=== PATIENT | male | born 1945 | race Caucasian/White ===

== ENCOUNTER → 2017-07-28 | Outpatient (CLI) | payer MEDICARE, OTHER ==
[~2017-07-28] MED LIST: ADULT LOW DOSE81 MG; ADVAIRDISKUS; CARVEDILOL12.5 MG PO; COREG PO; COZAAR 50 MG TA50 M2; ENAL0; GLUCOPHAGE500 MG; KLOR-CON 1010 MEQ; LASIX 40 MG TAB40 M1; LASIX 40 MG TAB40 MG; LEVOTHYROXIN0.088 MG; LIPITOR; LIPITOR40 MG; PROZAC40 MG; RANEXA500 MG; SYNTHROID; SYNTHROID100 MCG; VASOTEC; VENTOLIN HFA INH8 GM; WELLBUTRIN SR150 MG; ZOLOFT100 MG
[2017-07-28 14:45] LABS: CHOLESTEROL 134 mg/dL (<200); HDL CHOLESTEROL 49 mg/dL (>40); LDL CHOLESTEROL 55 mg/dL (<100); SGOT 19 U/L (15-37); SGPT 28 U/L (30-65); TC:HDL 2.7 Ratio (Not establshd); TRIGLYCERIDE 152 mg/dL (<150); VLDL 30 mg/dL (<40)
[2017-07-28 14:50] LABS: SERUM ASSESSMENT Clear
--- NOTE | 2017-07-28 15:40 | 2DMMODE ---
[place] [address] 2 D/M-MODE ECHOCARDIOGRAM Name: GUILHERME OCASIO Room: [facility]#: [id number] Admission: 07/28/17 Attend Phys: Alcon Talley, Discharge: Date of : 41 Date of Service: 07/28/17 1540 Report #: [id number] THIS REPORT FOR: //name// APPROVED REPORT Study performed: 07/28/2017 14:53:08 EXAM: Comprehensive 2D, Doppler, and color-flow Echocardiogram Patient Location: Out-Patient BSA: 2.17 HR: 57 bpm BP: 140/90 mmHg Other Information Study Quality: Good Indications Chest Pain 2D Dimensions LVEF(%): 53.54 (>50%) IVSd: 11.77 (7-11mm) LVOT Diam: 21.61 (18-24mm) LVDd: 52.19 mm PWd: 11.77 (7-11mm) Ascending Ao: 32.41 (22-36mm) LVDs: 37.67 (25-40mm) Aortic Root: 33.71 mm Grande's LVEF: 53.54 % Volumes Left Atrial Volume (Systole) LA ESV Index: 21.50 mL/m2 Aortic Valve AoV Peak Walter.: 1.20 m/s AO Peak Gr.: 5.80 mmHg LVOT Max P.48 mmHg AO Mean Gr.: 2.97 mmHg LVOT Mean P.04 mmHg LVOT Max V: 0.79 m/s AO V2 VTI: 28.27 cm LVOT Mean V: 0.46 m/s JOVANNI (VTI): 2.90 cm2 LVOT V1 VTI: 22.38 cm AI [place]: 2.03 m/s2 AI PHT: 522.75 ms Mitral Valve E/A Ratio: 0.80 [place] [address] 2 D/M-MODE ECHOCARDIOGRAM Name: GUILHERME OCASIO Room: [facility]#: [id number] Admission: 07/28/17 Attend Phys: Alcon Talley, Discharge: Date of : 41 Date of Service: 07/28/17 1540 Report #: [id number] MV Decel. Time: 306.65 ms MV E Max Walter.: 0.61 m/s MV PHT: 88.93 ms MVA (PHT): 2.47 cm2 TDI E/Lateral E': 8.71 E/Medial E': 10.17 Medial E' Walter.: 0.06 m/s Lateral E' Walter.: 0.07 m/s Pulmonary Valve PV Peak Walter.: 0.72 m/s PV Peak Gr.: 2.04 mmHg Tricuspid Valve TR Peak Gr.: 24.87 mmHg RVSP: 29.87 mmHg Left Ventricle The left ventricle is normal size. Mild basal inferior hypokinesis, otherwise normal segmental motion There is normal left ventricular wall thickness. Left ventricular systolic function is normal. The left ventricular ejection fraction is within the normal range. LVEF is 55-60%. Grade I - abnormal relaxation pattern. Right Ventricle The right ventricle is normal size. The right ventricular systolic function is normal. Atria The left atrium size is normal. The right atrium size is normal. Aortic Valve The aortic valve is normal in structure. Mild to moderate aortic regurgitation. There is no aortic valvular stenosis. Mitral Valve The mitral valve is normal in structure. Mild mitral regurgitation. No evidence of mitral valve stenosis. Tricuspid Valve The tricuspid valve is normal in structure. Mild tricuspid regurgitation. The RVSP is _29.9 mmHg. Pulmonic Valve The pulmonary valve is normal in structure. There is no [place]mon[place] [address] 2 D/M-MODE ECHOCARDIOGRAM Name: Room: [facility] Jordan#: [id number] Admission: 07/28/17 Attend Phys: Alcon Talley, Discharge: Date of : 41 Date of Service: 07/28/17 1540 Report #: [id number] Great Vessels The aortic root is normal in size. IVC is normal in size and collapses with >50% inspiration Pericardium There is no pericardial effusion. <Conclusion> LVEF is 55-60%. Grade I - abnormal relaxation pattern. Mild basal inferior hypokinesis, otherwise normal segmental motion Mild to moderate aortic regurgitation. Mild mitral regurgitation. <ELECTRONICALLY SIGNED> By: Alcon Talley MD, FACC 07/28/17 1540 154 154 Alcon Talley MD, FACC /INF
== END ==
LOC: M.CRD 13:59
PROVIDERS: Internal Medicine Cardiovascular Disease
DX: I08.3 Combined rheumatic disorders of mitral, aortic and tricuspid valves (principal); I50.22 Chronic systolic (congestive) heart failure; I10 Essential (primary) hypertension; Z98.61 Coronary angioplasty status

== ENCOUNTER → 2018-03-08 | Outpatient (CLI) | payer MEDICARE, OTHER | LOC: M.MRI 15:55 | DX: I67.82 Cerebral ischemia (principal); G31.9 Degenerative disease of nervous system, unspecified; I10 Essential (primary) hypertension; E11.9 Type 2 diabetes mellitus without complications; E78.5 Hyperlipidemia, unspecified; I25.10 Atherosclerotic heart disease of native coronary artery without angina pectoris; J45.909 Unspecified asthma, uncomplicated ==

== ENCOUNTER 2018-11-17 16:47 | Inpatient (IN) | payer MEDICARE, OTHER ==
[~2018-11-17] VITALS: Ht 175.3 cm; Wt 100.4 kg
--- NOTE | ~2018-11-17 | CON ---
[address] [address] CONSULTATION Name: GUILHERME OCASIO Room: [address] IN [facility].#: [id number] Admission: 11/17/18 Attend Phys: Christiano España MD Discharge: Date of : 41 Report #: [id number] THIS REPORT FOR: //name// CC: KHANG España DICTATED BY: Vanda Espinal [facility] DATE OF SERVICE: 11/18/2018 REASON FOR CONSULTATION: Small bowel abscess. HISTORY OF PRESENT ILLNESS: This is a 73-year-old male, who presented to the Emergency Room after being sent by his PCP for abnormal CT findings. It was done as an outpatient that revealed a small bowel abscess versus a walled off diverticulum. He started feeling a little nauseous on Thursday. He awoke Thursday, having abdominal pain radiating in the left lower quadrant and right lower quadrant and into his back. He states it was just getting very uncomfortable, nothing seemed to relieve. He did not notice any change in his bowel habits at that time and because he had a decreased appetite and some mild nausea, he decided to go in and see his PCP who ordered the CT and once that was read, he was instructed to go to the Emergency Room. The patient had a colonoscopy back in 2016 and had some polyps and diverticulosis, otherwise negative EGD in 2011 showed ____ and hiatal hernia. ALLERGIES: SHAY COLD AND SINUS. MEDICATIONS: From home include metformin, aspirin, albuterol, Lipitor, Lasix, Coreg, Ranexa, Synthroid, Wellbutrin, Advair, Zoloft, potassium chloride, and Cozaar. PAST MEDICAL HISTORY: Cardiomyopathy, CAD, Parkinson's, COPD, posttraumatic stress disorder, hypothyroidism. PAST SURGICAL HISTORY: Cholecystectomy, left wrist surgery and right ankle. FAMILY HISTORY: Mother, colon cancer. SOCIAL HISTORY: Denies any alcohol, tobacco, or illegal drug use. Him and his are to leave for vacation for 3 weeks this week. REVIEW OF SYSTEMS: A 12-point review of systems is essentially negative except what is mentioned in the HPI. PHYSICAL EXAMINATION: [place] [address] CONSULTATION Name: AMARJITCONNORGUILHERME D Room: [address]#: [id number] Admission: 11/17/18 Attend Phys: Christiano España MD Discharge: Date of : 41 Report #: [id number] VITAL SIGNS: Temperature 37.4, pulse 66, respirations 16, blood pressure 112/48. HEART: Regular rate and rhythm. LUNGS: Clear. ABDOMEN: Soft. Positive bowel sounds in all 4 quadrants with tenderness noted in the left lower to mid quadrant area. LABORATORY DATA: Hemoglobin 11.3, white count 13.5 down from 20 on admission, platelets 245. GFR is 54. LFTs; total bilirubin 1.2, alkaline phosphatase 59, ALT 25, AST is 18. CT that was done as an outpatient showed 2 small bowel diverticulum versus a contained perforation. IMPRESSION: 1. Abdominal pain. 2. Small bowel abscess. 3. Leukocytosis. 4. Family history of colon cancer, mother. PLAN: 1. No intervention from GI at this time. 2. Continue his current antibiotic regimen. 3. Keeping n.p.o. 4. We will be available as needed and on standby. Thank you for allowing us to participate in this patient's care. Please do not hesitate to call with any questions in regard to this consult. By: [id number] Rolon MD /nt
[~2018-11-17 16:47] MED LIST changes: +SYNTHROID100 MC1 PO; -SYNTHROID88 MCG PO
[2018-11-17 16:52] VITALS: BP 124/76
[2018-11-17 17:09] LABS: HEMATOCRIT 41.1 % (42.0-52.0); HEMOGLOBIN 13.8 gm/dL (14.0-18.0); MCH 29.9 pg (26.0-34.0); MCHC 33.5 g/dL (28.0-37.0); MCV 89.4 fL (80.0-100.0); MPV 8.1 fl. (7.2-11.1); NUCLEATED RBCS 0 /100WBC; PLATELET COUNT* 312 thou/uL (150-400); RDW-CV 13.5 % (10.5-14.5); WBC 20.5 thou/uL (4.0-11.0)
[2018-11-17 17:17] LABS: CALCIUM 9.3 mg/dL (8.5-10.1); CREATININE 1.5 mg/dL (0.6-1.3); POTASSIUM 3.4 mmol/L (3.5-5.1)
[2018-11-17 17:22] LABS: ALBUMIN 4.1 g/dL (3.4-5.0); TOTAL BILIRUBIN 1.7 mg/dL (<0.1-1.0); TOTAL PROTEIN 8.5 g/dL (6.4-8.2)
[2018-11-17 17:36] LABS: BE -3.9 mmol/L (-2 to +3); PCO2 27.2 mmHg (35.0-45.0); PO2 65.5 mmHg (75.0-100.0); pH 7.452 (7.340-7.450)
[2018-11-17 17:47] LABS: ABSOLUTE LYMPHOCYTES 1.8 thou/uL (0.8-5.3); ABSOLUTE MONOCYTES 1.6 thou/uL (0.0-1.2); PLATELET ESTIMATE ADEQUATE
[2018-11-17 18:12] VITALS: BP 128/56
[2018-11-17 18:30] VITALS: BP 127/46
--- NOTE | 2018-11-17 19:30 | NUR ---
PATIENT ARRIVED FROM ER AT 1830. PATIENT SETTLED TO ROOM. HISTORY, ASSESSMENT AND VITALS COMPLETED AND DOCUMENTED. PATIENT HAS COMPLAINTS OF ABDOMINAL PAIN WITH NO NAUSEA. PATIENT IS NPO, SWABS PROVIDED. PATIENT IS UP AD ROXANNA WITH CANE. CALL LIGHT WITHIN REACH. WILL CONTINUE TO MONITOR.
[2018-11-17 20:15] VITALS: BP 102/53
[2018-11-17] MEDS ORDERED: LIPITOR40 MG PO (23:30)
[2018-11-17] MEDS ORDERED: RANEXA500 MG PO (23:31)
[2018-11-18 01:38] VITALS: BP 113/63
[2018-11-18 04:14] LABS: ABSOLUTE EOSINOPHILS 0.1 thou/uL (0.0-0.7); ABSOLUTE LYMPHOCYTES 1.4 thou/uL (0.8-5.3); ABSOLUTE MONOCYTES 1.7 thou/uL (0.0-1.2); ABSOLUTE NEUTROPHILS 10.3 thou/uL (1.6-8.1); BASOPHILS 0.4 %; EOSINOPHILS 0.4 %; HEMATOCRIT 33.3 % (42.0-52.0); LYMPHOCYTES 10.4 %; MCH 30.5 pg (26.0-34.0); MCV 89.8 fL (80.0-100.0); MONOCYTES 12.7 %; MPV 8.5 fl. (7.2-11.1); NUCLEATED RBCS 0 /100WBC; PLATELET COUNT* 245 thou/uL (150-400); POLYS 76.1 %; RBC 3.71 mil/uL (4.50-6.00); RDW-CV 13.3 % (10.5-14.5); WBC 13.5 thou/uL (4.0-11.0)
[2018-11-18 04:30] LABS: HEMOGLOBIN 11.3 gm/dL (14.0-18.0)
[2018-11-18 04:45] LABS: CALCIUM 8.7 mg/dL (8.5-10.1); CREATININE 1.3 mg/dL (0.6-1.3); POTASSIUM 3.2 mmol/L (3.5-5.1); TOTAL BILIRUBIN 1.2 mg/dL (<0.1-1.0); TOTAL PROTEIN 6.8 g/dL (6.4-8.2)
--- NOTE | 2018-11-18 06:05 | NUR ---
PATIENT HAS SLEPT WELL THROUGHOUT THE NIGHT. VSS ON 2L 02 VIA NASAL CANNULA. MEDICATIONS GIVEN ORDERED AND CHARTED. PATIENT USING BEDSIDE URINAL DURING THE NIGHT. PATIENT HAS REMAINED NPO. IV IN LEFT AC-NS @ 100ML/HR. IV ABT'S GIVEN ORDERED WITHOUT ANY ADVERSE SIDE EFFECTS NOTED. PATIENT INSTRUCTED TO USE CALL LIGHT WHEN NEEDING ASSISTANCE. HOURLY ROUNDS MADE. WILL CONTINUE WITH PLAN OF CARE AND NURSING TO MONITOR.
[2018-11-18 08:30] VITALS: BP 112/48
[2018-11-18 11:06] LABS: GLYCOHEMOGLOBIN (HGB A1C) 6.5 % (4.8-5.6)
--- NOTE | 2018-11-18 11:23 | EKG ---
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 11/18/18 1123 170 1700 Alcon Talley MD, [facility] /EPI
--- NOTE | 2018-11-18 14:23 | NUR ---
PT.RESTING IN BED. AND SISTER AT BEDSIDE. PT.ALERT AND ORIENTED. PT.LIVES WITH . HE IS NORMALLY INDEPENDENT WITH ALL THINGS AT HOME. HE HAS A CANE. HE DRIVES. HE HAS NO HX OF SNF OR HOME HEALTH. SISTER SAID SHE HAS COPY OF DPOA AT HER HOUSE IF NEEDED. PT.HAD NO QUESTIONS ABOUT HIS CARE OR PLAN OF CARE. HE STATED THE CARE HAS BEEN GREAT. CM WILL FOLLOW.
[2018-11-18 16:44] VITALS: BP 105/62
[2018-11-18 17:20] LABS: MAGNESIUM 2.5 mg/dL (1.8-2.4); POTASSIUM 3.5 mmol/L (3.5-5.1)
--- NOTE | 2018-11-18 18:36 | NUR ---
PATIENT RESTING IN BED. PATIENT IS UP WITH STANDBY ASSIST TO BATHROOM. PATIENT HAD COMPLAINTS OF ABDOMINAL PAIN X 1 WITH ADEQUATE RELIEF WITH FENTANYL. PATIENT IS NPO, BUT WANTING TO EAT. IR CONSULTING FOR DRAIN PLACEMENT BUT STATED NOT ABLE TO PLACE ANY DRAINS AT THIS TIME. PATIENT DENIES ANY NEEDS AT THIS TIME. CALL LIGHT WITHIN REACH. WILL CONTINUE TO MONITOR.
[2018-11-19] VITALS: BP 98/53
[2018-11-19 03:54] LABS: HEMOGLOBIN 10.3 gm/dL (14.0-18.0); MCH 30.2 pg (26.0-34.0); MCHC 33.3 g/dL (28.0-37.0); MCV 90.6 fL (80.0-100.0); MPV 8.3 fl. (7.2-11.1); RBC 3.43 mil/uL (4.50-6.00); RDW-CV 13.7 % (10.5-14.5); WBC 7.6 thou/uL (4.0-11.0)
[2018-11-19 04:00] VITALS: BP 104/65
[2018-11-19 04:17] LABS: CALCIUM 8.3 mg/dL (8.5-10.1); CREATININE 1.1 mg/dL (0.6-1.3); POTASSIUM 3.7 mmol/L (3.5-5.1)
--- NOTE | 2018-11-19 05:36 | NUR ---
PT ALERT AND ORIENTED. 9PM COREG WAS HELD BP WAS LOW, OTHERWISE VSS. PO PAIN MED WAS GIVEN X1 THIS SHIFT. RELIEF NOTED. SLEEP MED WAS ORDERED AND GIVEN PT'S REQUEST. PT SLEPT MOST OF THE NIGHT. PO MEDS GIVEN WITH SIPS OF WATER. IV ABX INFUSED PER EMAR. CALL LIGHT WITHIN REACH. HOURLY ROUNDINGS MADE. WILL CONTINUE TO MONITOR.
[2018-11-19 08:00] VITALS: BP 123/74
--- NOTE | 2018-11-19 10:15 | NUR ---
Spoke with RN Lorena for this patient in regards to IR consult with Dr. Wynn and the abscess drainage that is ordered. Called Dr. Wynn and he reviewed the xrays. Dr. Wynn stated that he cannot safely get to the abscess due to multiple small bowel loops that are in the way. I relayed this information to the RN so that Dr. España may be informed and may proceed in a different direction.
[2018-11-19 11:17] LABS: URINE BLOOD NEGATIVE (Negative); URINE CLARITY CLEAR; URINE COLOR YELLOW; URINE GLUCOSE-RANDOM NEGATIVE (Negative); URINE KETONES 1+ (Negative); URINE LEUKOCYTES-REFLEX NEGATIVE (Negative); URINE NITRITE-REFLEX NEGATIVE (Negative); URINE PROTEIN TRACE (Negative); URINE SPECIFIC GRAVITY >= 1.030 (1.005-1.030); URINE UROBILINOGEN 0.2 E.U./dl (0.2-1.0)
[2018-11-19 11:18] LABS: ICTOTEST (BILI CONFIRMATORY) Negative (Negative); URINE BILIRUBIN 1+ (Negative)
--- NOTE | 2018-11-19 12:36 | NUR ---
RIGHT BASILIC VESSEL ACCESED FOR 5 MALAY DUAL LUMEN PICC. LINE PRE-TRIMMED TO 41 CM AND ADVANCED TO THE ZERO ED WITH NO RESISTQNCE MET. UPPER ARM CIRCUMFERENCE ABOVE INSERTION SITE = 12". SHERLOCK MAGNET AND 3CG CONFIRMATION OF TIP TERMINATION AT THE CAVOATRIAL JUNCTION APPRECIATED. GUIDE WIRE REMOVED, LINE FLUSHED AND INSERTION SITE DRESSED. REOPRT GIVERN TO NEPTALI ANDERSON.
--- NOTE | 2018-11-19 15:49 | NUR ---
ASSESSMENT COMPLETE. PICC PLACED IN RIGHT UPPER ARM THIS MORNING FOR TPN AND IV ABX. PT STILL NPO. D5 10MEQ INFUSING. IV ZOSYN GIVEN ORDERED. PT HAS CT TOMORROW. IR CONSULT AND STATED THE LOCATION OF [facility] IS NOT IN AN AREA THEY CAN SAFELY DRAIN. GI AND SURGERY STILL FOLLOWING. PT IS ACCU CHECK, NO METFORMIN DUE TO CT'S WITH CONTRAST. NO INSULIN NEEDED DURING THE DAY. PHYSICAL THERAPY CONSULTED, PT AMBULATED IN HALLWAY WITH GAIT BELT. MAG REPLACED. PT IS RESTING WITH AT BEDSIDE. SEE ASSESSMENT AND VITALS FOR OTHER DETAILS. CALL LIGHT WITHIN REACH, WILL CONTINUE PLAN OF CARE
[2018-11-19 16:52] VITALS: BP 121/64
--- NOTE | 2018-11-20 05:12 | NUR ---
PT ORIENTED TO SELF, OTHERWISE CONFUSED. BASELINE DEMENTIA. VSS ON 2L NC . MEDS GIVEN PER EMAR. WHEN AWAKE, PT WOULD SAY "I FEEL STUPID THAT I CANNOT GET OUT BED". PT WAS CALLING HER DAUGHTER'S NAME DAYDAY PARRA AM. PT. REORIENTATION TO PLACE AND SITUATION PROVIDED NEEDED. CALL LIGHT WITHIN REACH. HOURLY ROUNDINGS MADE. WILL CONTINUE TO MONITOR.
[2018-11-20 05:20] LABS: ABSOLUTE BASOPHILS 0.1 thou/uL (0.0-0.2); ABSOLUTE EOSINOPHILS 0.4 thou/uL (0.0-0.7); ABSOLUTE LYMPHOCYTES 1.2 thou/uL (0.8-5.3); ABSOLUTE MONOCYTES 0.7 thou/uL (0.0-1.2); ABSOLUTE NEUTROPHILS 5.3 thou/uL (1.6-8.1); HEMATOCRIT 33.6 % (42.0-52.0); HEMOGLOBIN 11.5 gm/dL (14.0-18.0); LYMPHOCYTES 15.6 %; MCH 30.9 pg (26.0-34.0); MCHC 34.3 g/dL (28.0-37.0); MCV 90.2 fL (80.0-100.0); MONOCYTES 8.9 %; MPV 8.2 fl. (7.2-11.1); NUCLEATED RBCS 0 /100WBC; PLATELET COUNT* 317 thou/uL (150-400); POLYS 69.5 %; RBC 3.72 mil/uL (4.50-6.00); RDW-CV 13.4 % (10.5-14.5); WBC 7.7 thou/uL (4.0-11.0)
--- NOTE | 2018-11-20 05:35 | NUR ---
PT LAERT AND ORIENTED. VSS ON RA. MEDS GIVEN PER EMAR. SMALL BM NOTED X1 THIS SHIFT. PT TO BSC WITH CANE. STANDY ASSIST. TPN INFUSING ORDERED. NPO. PT SLEPT WELL THIS SHIFT. CALL LIGHT WITHIN REACH. HOURLY ROUNDINGS MADE. WILL CONTINUE TO MONITOR.
[2018-11-20 05:40] LABS: CREATININE 1.2 mg/dL (0.6-1.3); MAGNESIUM 1.9 mg/dL (1.8-2.4); POTASSIUM 3.6 mmol/L (3.5-5.1)
[2018-11-20 16:28] VITALS: BP 159/70
--- NOTE | 2018-11-20 19:00 | NUR ---
PATIENT PLEASANT AND COOPERATIVE THRU SHIFT. PRESENT AT TIMES DURING SHIFT, AT BEDSIDE. PATIENT VOICED CONCERN ABOUT ABD BLOATING, STATES THAT HE TAKES LASIX AT HOME AND HIS FLUID RETENTION IS MORE IN HIS ABD THAN IN HIS EXTREMITIES. DR NOTIFIED, NO CHANGES ORDERED. PATIENT NPO EXCEPT FOR SIPS WITH MEDS THIS SHIFT. UP TO CHAIR THIS AFTERNOON. STATES VOIDING WELL, STATES SM BM TODAY. PICC LINE NOTED WNL, TPN INFUSING W/O DIFF AT THIS TIME. ~TJRN
[2018-11-20 20:00] VITALS: BP 151/74
[2018-11-21 02:20] VITALS: BP 108/61
--- NOTE | 2018-11-21 05:01 | NUR ---
PATIENT HAS REMAINED ALERT AND ORIENTED X 4 THROUGHOUT THE SHIFT AND RESTING AT INTERVALS ON HOURLY ROUNDS. UP TO BR. PASSING SOME GAS, NO BM. TPN AND ANTIBIOTICS PER ORDERS. NEW ORDER OK FOR ICE CHIPS. PATIENT TOLERATED WITHOUT ANY NEGATIVE RESPONSE. VITAL SIGNS STABLE. CONTINUE TO MONITOR.
[2018-11-21 05:06] LABS: ABSOLUTE BASOPHILS 0.1 thou/uL (0.0-0.2); ABSOLUTE EOSINOPHILS 0.2 thou/uL (0.0-0.7); ABSOLUTE LYMPHOCYTES 1.1 thou/uL (0.8-5.3); ABSOLUTE MONOCYTES 0.7 thou/uL (0.0-1.2); BASOPHILS 1.4 %; EOSINOPHILS 3.6 %; HEMATOCRIT 29.6 % (42.0-52.0); HEMOGLOBIN 10.3 gm/dL (14.0-18.0); LYMPHOCYTES 18.1 %; MCH 31.4 pg (26.0-34.0); MCHC 34.8 g/dL (28.0-37.0); MCV 90.4 fL (80.0-100.0); MONOCYTES 11.2 %; NUCLEATED RBCS 0 /100WBC; PLATELET COUNT* 269 thou/uL (150-400); POLYS 65.7 %; RBC 3.27 mil/uL (4.50-6.00); RDW-CV 13.4 % (10.5-14.5); WBC 6.1 thou/uL (4.0-11.0)
[2018-11-21 05:26] LABS: CALCIUM 8.2 mg/dL (8.5-10.1); CREATININE 0.8 mg/dL (0.6-1.3); POTASSIUM 3.3 mmol/L (3.5-5.1)
[2018-11-21 08:00] VITALS: BP 153/73
[2018-11-21 15:34] VITALS: BP 148/70
--- NOTE | 2018-11-21 19:00 | NUR ---
PATIENT PLEASANT AND COOPERATIVE W/ ASSESS AND CARES. PATIENT AMB IN HALLS THIS AFTERNOON, CANE AND SBA PRESENT. STEADY, SLOW GAIT NOTED. PATIENT DENIES PAIN, STATES HAVING BM THIS AM. NO DIFF W/ URINATING. ABD NOTED LESS DISTENDED THIS SHIFT FROM YESTERDAY. PATIENT STATES FEELING MUCH BETTER TODAY. PICC LINE NOTED WNL, +BLOOD RETURN NOTED FROM PORTS. PRESENT DURING SHIFT. DIET ADVANCED TO FULL LIQS, PATIENT DENIES NAUSEA, EATING WELL. DENIES NURSING NEEDS AT THIS TIME. CALL LIGHT IN REACH, HRLY ROUNDING DONE. ~TJRN
[2018-11-21 20:15] VITALS: BP 165/82
--- NOTE | 2018-11-22 05:14 | NUR ---
PATIENT HAS REMAINED ALERT AND ORIENTED X 4 THROUGHOUT THE SHIFT AND RESTING QUIETLY ON HOURLY ROUNDS. HAS DENIED PAIN OR NAUSEA. VOIDS PER URINAL. NO BM'S THIS SHIFT. SOME STATED SOA PRIOR TO EARLY AM BREATHING TREATMENT. VITAL SIGNS STABLE. ANTIBIOTICS PER ORDER. CONTINUE TO MONITOR.
[2018-11-22 07:50] VITALS: BP 137/63
--- NOTE | 2018-11-22 07:56 | CON ---
[address] [address] CONSULTATION Name: GUILHERME OCASIO Room: [address] IN .R.#: [id number] Admission: 11/17/18 Attend Phys: Christiano España MD Discharge: Date of : 41 Report #: [id number] THIS REPORT FOR: //name// CC: Pawel España DATE OF SERVICE: 11/19/2018 INFECTIOUS DISEASE CONSULTATION ATTENDING PHYSICIAN: Christiano España M.D. REASON FOR EVALUATION: Intra-abdominal abscess. Recommendation for antibiotic therapy duration. HISTORY OF PRESENT ILLNESS: Chart reviewed, patient examined. This is a 73-year-old with extensive medical history including diabetes mellitus type 2, also has known chronic obstructive pulmonary disease, who presented to the Emergency Room with complaints of severe abdominal-related complaints. On November 17, there was a concern about a small bowel obstruction, possible perforation. Imaging showed ____ appeared to be inflammatory fluid collections. Someone needs to find about the etiology whether it is small bowel related or perhaps diverticulitis. He has been evaluated including Gastroenterology service as well as Surgery and placed empirically on therapy with piperacillin and tazobactam. At this point, his pain is improved. He did describe true rigors at its onset. He has had poor p.o. intake with anorexia. Bowel movements have been somewhat variable. Denies significant pulmonary related complaints. ALLERGIES: LISTED TO PHENYLEPHRINE, PSEUDOEPHEDRINE, CHLORPHENIRAMINE. MEDICATIONS: Include pantoprazole, enoxaparin, aspirin, levothyroxine, atorvastatin, losartan, sertraline, bupropion, carvedilol, ranolazine, p.r.n. analgesics, antiemetics, Zosyn, insulin lispro sliding scale, famotidine. PAST MEDICAL HISTORY: As described above, diabetes mellitus type 2 complicated by vasculopathy, has known atherosclerotic coronary artery disease with previous stenting, has cardiomyopathy, history of COPD, obstructive sleep apnea, Parkinson's, hypothyroidism, PTSD. SOCIAL HISTORY: Nonsmoker, no ethanol, no illicit drug use. FAMILY HISTORY: Noncontributory. REVIEW OF SYSTEMS: Otherwise, unremarkable 10-point review of systems other than described in the [place] [address] CONSULTATION Name: GUILHERME OCASIO Room: [address]#: [id number] Admission: 11/17/18 Attend Phys: Christiano España MD Discharge: Date of : 41 Report #: [id number] PHYSICAL EXAMINATION: GENERAL: He is alert and cooperative. He is in moderate distress at this point, appears somewhat undernourished. He is generally lucid. VITAL SIGNS: Temperature 98.4, pulse 60, respirations 15, blood pressure 123/74. SKIN: Warm without evidence of rash. He has got several contused areas in his forearms. HEENT: Normocephalic. Extraocular muscles intact. NECK: Supple. LUNGS: Overall diminished, few scattered crackles at the bases. HEART: Regular, occasional ectopy. I do not appreciate a murmur. ABDOMEN: Distended, somewhat tympanitic. There are no overt peritoneal signs. It is only minimally tender favoring the left lower quadrant periumbilical site. GENITOURINARY AND RECTAL: Deferred. EXTREMITIES: Distal lower extremities without edema. LABORATORY DATA: Blood cultures sterile thus far. Most recent electrolytes; sodium 143, potassium 3.7, chloride 107, bicarb is 25, anion gap of 11, BUN and creatinine 16 and 1.1, glucose of 84. CBC; white count of 7.6, H and H 10.3 and 31.0, platelets of 243. Hemoglobin A1c of 6.5. CT abdomen and pelvis showed markedly inflamed small bowel loops in the mid to lower abdomen associated with 7.8 x 5.9 x 6.6 cm phlegmonous gas and 2 separate fluid collections which communicate a question of inflammatory bowel disease with fistulous formation versus diverticulitis. Lactic acid was 1.5. TSH of 2.940. Urinalysis generally unremarkable. ASSESSMENT: Intra-abdominal abscesses. It is not clear as to what the source is at this point. I did again ask him about a possible swallowing of a sharp foreign body, which he denied. He had been eating walnuts the day before, does not have lower teeth. He says he chews them well. Whether this is small bowel origin or colonic, it is not clear. I think empiric antimicrobial therapy is certainly reasonable, to start with antibacterial and see how he responds. I know there is discussion about best approach seemingly percutaneous aspirate, pending correction of the coagulopathy. We will see how he does clinically. I think once there is a drain in place, ideally we will have culture data. Could likely switch to oral regimen prior to discharge from the hospital. We will monitor expectantly at risk for additional hospital-related complications including infection. <ELECTRONICALLY SIGNED> By: Fidencio Plascencia MD 11/22/18 0756 1119 [id number] Plascencia MD /nt
--- NOTE | 2018-11-22 11:45 | NUR ---
FEELING MUCH BETTER SINCE WHEN HE FIRST CAME IN . IS ANXIOUS TO START 'REAL' FOOD FOR LUNCH. HOPES TO DISCHARGE TOMORROW.
--- NOTE | 2018-11-22 16:41 | NUR ---
ASSUMED CARE OF PATIENT AT APPROX 0830. ALERT AND ORIENTED X4. ASSESSMENT COMPLETED AND CHARTED. VSS ON ROOM AIR. NO COMPLAINTS OF PAIN, NAUSEA, OR SOA. PATIENT UP IN THE CHAIR FOR MEALS TODAY. UP STAND BY ASSIST TO THE BATHROOM. IV ANTIBIOTICS INFUSED ORDERED. FALL PRECAUTIONS IN PLACE. CALL LIGHT WITHIN REACH. HOURLY ROUNDS COMPLETED. WILL CONTINUE TO MONITOR.
[2018-11-22 19:50] VITALS: BP 152/73
--- NOTE | 2018-11-23 04:48 | NUR ---
PATIENT HAS REMAINED ALERT AND ORIENTED X 4 THROUGHOUT THE SHIFT. NO REPORTED RESPIRTORY DISTRESS TONIGHT. RT TX PROVIDED PER ORDER BY RT. VITAL SIGNS STABLE. REPORTED 3 DIARRHEA STOOLS LAST 24 HOURS. NONE OBSERVED. DENIED ABDOMINAL PAIN OR NAUSEA. ANTIBIOTICS PER ORDER. CONTINUE TO MONITOR.
[2018-11-23 07:35] VITALS: BP 169/86
[2018-11-23 16:30] VITALS: BP 145/69
--- NOTE | 2018-11-23 17:06 | NUR ---
PT REMAINED ALERT AND ORIENTED. PT RESTING IN ROOM. POSSIBLE DC TOMORROW AFTER CT SCAN COMPELTED. FALL RISK PRECAUTIONS IN PLACE. HOURLY ROUNDING COMPLETED. WILL CONTINUE TO MONITOR.
[2018-11-23 20:30] VITALS: BP 136/72
[2018-11-24] VITALS (7 sets, daily range): BP systolic 153; BP diastolic 80
--- NOTE | 2018-11-24 06:12 | NUR ---
PATIENT HAS SLEPT WELL THROUGHOUT THE NIGHT. VSS ON RA. NO C/O PAIN. PATIENT HAS REMAINED NPO SINCE 0300 D/T REPEAT CT SCHEDULED THIS AM. RIGHT UPPER ARM DOUBLE LUMEN PICC-SL. PATIENT INSTRUCTED TO USE CALL LIGHT WHEN NEEDING ASSISTANCE. HOURLY ROUNDS MADE. WILL CONTINUE WITH PLAN OF CARE AND NURSING TO MONITOR.
[2018-11-24] MEDS ORDERED: AUGMENTIN 875-1 EACH PO ×2 (09:49→13:34)
[2018-11-24] MEDS ORDERED: PROTONIX40 M2 PO (09:50)
[2018-11-24] MEDS ORDERED: CIPRO500 MG PO (11:04)
[2018-11-24] MEDS ORDERED: FLAGYL500 M1 PO (11:05)
[2018-11-24] MEDS ORDERED: K-DUR 20 MEQ T20 MEQ PO (11:07)
--- NOTE | 2018-11-24 14:43 | NUR ---
PT.TO DISCHARGE TODAY WITH HOME HEALTH. RECEIVING BREATHING TX. AT BEDSIDE. DISCUSSED HH WITH BOTH. AND PT.CHOSE [facility]. FAXED REFERRAL AND DISCHARGE SUMMARY TO [facility] [phone]. THEY ARE AWARE HOME HEALTH WILL CALL THEM TOMORROW TO SET UP APPT.
== END 2018-11-24 15:47 | disposition home health service (06) | DRG 871 ==
LOC: M.ERS 16:47 → M.ORTHSURG 17:37 → M.TBA-ER 17:37 → M.ORTHSURG 18:27
PROVIDERS: Personal Emergency Response Attendant; Surgery; ADMIT Family Medicine
PROC: 05HY33Z Insertion of Infusion Device into Upper Vein, Percutaneous Approach (ICD-10-PCS; principal; 2018-11-19)
DX: A41.9 Sepsis, unspecified organism (principal); K65.1 Peritoneal abscess; J96.01 Acute respiratory failure with hypoxia; K57.20 Diverticulitis of large intestine with perforation and abscess without bleeding; I42.9 Cardiomyopathy, unspecified; N17.9 Acute kidney failure, unspecified; I50.30 Unspecified diastolic (congestive) heart failure; I13.0 Hypertensive heart and chronic kidney disease with heart failure and stage 1 through stage 4 chronic kidney disease, or unspecified chronic kidney disease; I25.10 Atherosclerotic heart disease of native coronary artery without angina pectoris; J44.9 Chronic obstructive pulmonary disease, unspecified; E11.22 Type 2 diabetes mellitus with diabetic chronic kidney disease; E03.9 Hypothyroidism, unspecified; F43.10 Post-traumatic stress disorder, unspecified; G20 Parkinson's disease; G47.33 Obstructive sleep apnea (adult) (pediatric); N18.3 Chronic kidney disease, stage 3 (moderate); K57.10 Diverticulosis of small intestine without perforation or abscess without bleeding; E87.6 Hypokalemia; E83.42 Hypomagnesemia; Z88.8 Allergy status to other drugs, medicaments and biological substances; Z90.49 Acquired absence of other specified parts of digestive tract; Z80.0 Family history of malignant neoplasm of digestive organs; Z95.5 Presence of coronary angioplasty implant and graft; Z82.49 Family history of ischemic heart disease and other diseases of the circulatory system; Z79.82 Long term (current) use of aspirin; Z79.899 Other long term (current) drug therapy

== ENCOUNTER → 2018-11-17 | Outpatient (CLI) | payer MEDICARE, OTHER ==
[~2018-11-17] MED LIST changes: -ADULT LOW DOSE81 MG; +ADULT LOW DOSE81 MG PO; +COZAAR 50 MG TA50 M1 PO; -COZAAR 50 MG TA50 M2; +GLUCOPHAGE500 MG PO; -KLOR-CON 1010 MEQ; +KLOR-CON 1010 MEQ PO; -LASIX 40 MG TAB40 M1; +LASIX 40 MG TAB40 M1 PO; -LEVOTHYROXIN0.088 MG; -LIPITOR40 MG; +LIPITOR40 MG PO; -RANEXA500 MG; +RANEXA500 MG PO; +SYNTHROID88 MCG PO; -VENTOLIN HFA INH8 GM; +VENTOLIN HFA INH8 GM INH; -WELLBUTRIN SR150 MG; +WELLBUTRIN SR150 MG PO; -ZOLOFT100 MG; +ZOLOFT100 MG PO
[2018-11-17 13:49] LABS: HEMATOCRIT 39.7 % (42.0-52.0); HEMOGLOBIN 13.5 gm/dL (14.0-18.0); MCH 30.5 pg (26.0-34.0); MCV 89.7 fL (80.0-100.0); MPV 8.1 fl. (7.2-11.1); NUCLEATED RBCS 0 /100WBC; PLATELET COUNT* 310 thou/uL (150-400); RBC 4.43 mil/uL (4.50-6.00); RDW-CV 13.4 % (10.5-14.5); WBC 17.1 thou/uL (4.0-11.0)
[2018-11-17 13:52] LABS: URINE BLOOD NEGATIVE (Negative); URINE CLARITY CLEAR; URINE COLOR YELLOW; URINE GLUCOSE-RANDOM NEGATIVE (Negative); URINE KETONES 1+ (Negative); URINE LEUKOCYTES-REFLEX NEGATIVE (Negative); URINE NITRITE-REFLEX NEGATIVE (Negative); URINE PROTEIN 1+ (Negative); URINE SPECIFIC GRAVITY 1.015 (1.005-1.030)
[2018-11-17 14:02] LABS: ALBUMIN 3.8 g/dL (3.4-5.0); CALCIUM 9.1 mg/dL (8.5-10.1); CREATININE 1.4 mg/dL (0.6-1.3); POTASSIUM 3.7 mmol/L (3.5-5.1); TOTAL BILIRUBIN 1.4 mg/dL (<0.1-1.0)
[2018-11-17 14:11] LABS: ICTOTEST (BILI CONFIRMATORY) Negative (Negative); URINE BILIRUBIN 1+ (Negative)
[2018-11-17 14:12] LABS: BACTERIA-REFLEX 1-9 Few /HPF (None Seen); CASTS None Seen /LPF (None Seen); CRYSTALS None Seen /LPF (None Seen); SQUAMOUS 0-3 Few /LPF (0-3); URINE RBC 0-2 Rare /HPF (0-2); URINE WBC-REFLEX 0-5 Rare /HPF (0-5)
[2018-11-17 14:15] LABS: ABSOLUTE LYMPHOCYTES 0.5 thou/uL (0.8-5.3); ABSOLUTE MONOCYTES 0.2 thou/uL (0.0-1.2); ABSOLUTE NEUTROPHILS 16.4 thou/uL (1.6-8.1); PLATELET ESTIMATE ADEQUATE
== END ==
LOC: M.CT 13:28
PROVIDERS: Internal Medicine
DX: N28.1 Cyst of kidney, acquired (principal); K57.12 Diverticulitis of small intestine without perforation or abscess without bleeding; Z90.49 Acquired absence of other specified parts of digestive tract

== ENCOUNTER → 2018-12-13 | Outpatient (CLI) | payer MEDICARE, OTHER ==
[~2018-12-13] MED LIST changes: +AUGMENTIN 875-1 EACH PO; +CIPRO500 MG PO; +FLAGYL500 M1 PO; +K-DUR 20 MEQ T20 MEQ PO; +PROTONIX40 M2 PO
[2018-12-13 13:47] LABS: CREATININE 1.2 mg/dL (0.6-1.3)
== END ==
LOC: M.LAB 12:00
PROVIDERS: Surgery
DX: K42.9 Umbilical hernia without obstruction or gangrene (principal); K57.12 Diverticulitis of small intestine without perforation or abscess without bleeding; M47.816 Spondylosis without myelopathy or radiculopathy, lumbar region; N40.0 Benign prostatic hyperplasia without lower urinary tract symptoms; K56.41 Fecal impaction; J98.4 Other disorders of lung; G95.9 Disease of spinal cord, unspecified

== ENCOUNTER → 2018-12-28 | Outpatient (CLI) | payer MEDICARE, OTHER | LOC: M.RAD 09:00 | DX: K57.92 Diverticulitis of intestine, part unspecified, without perforation or abscess without bleeding (principal); K57.12 Diverticulitis of small intestine without perforation or abscess without bleeding; I25.10 Atherosclerotic heart disease of native coronary artery without angina pectoris; J44.9 Chronic obstructive pulmonary disease, unspecified; E11.9 Type 2 diabetes mellitus without complications; I10 Essential (primary) hypertension; Z92.89 Personal history of other medical treatment; Z79.84 Long term (current) use of oral hypoglycemic drugs; Z79.899 Other long term (current) drug therapy; Z79.82 Long term (current) use of aspirin ==

== ENCOUNTER 2019-04-28 23:44 | Emergency (ER) | payer MEDICARE, OTHER ==
[~2019-04-28] VITALS: Ht 177.8 cm; Wt 90.7 kg
[2019-04-29] MEDS ORDERED: SINEMET 25-1001 EAC1 PO (00:01)
[2019-04-29] MEDS ORDERED: VENTOLIN HFA INH8 GM INH (00:01)
[2019-04-29] MEDS ORDERED: ADVAIR 250-501 EACH INH (00:02)
[2019-04-29 00:32] LABS: ABSOLUTE BASOPHILS 0.1 thou/uL (0.0-0.2); ABSOLUTE EOSINOPHILS 0.2 thou/uL (0.0-0.7); ABSOLUTE LYMPHOCYTES 1.5 thou/uL (0.8-5.3); ABSOLUTE MONOCYTES 0.9 thou/uL (0.0-1.2); ABSOLUTE NEUTROPHILS 7.1 thou/uL (1.6-8.1); BASOPHILS 0.8 %; EOSINOPHILS 2.3 %; HEMATOCRIT 36.4 % (42.0-52.0); HEMOGLOBIN 12.5 gm/dL (14.0-18.0); LYMPHOCYTES 15.7 %; MCHC 34.4 g/dL (28.0-37.0); MCV 89.9 fL (80.0-100.0); MONOCYTES 8.9 %; MPV 7.6 fl. (7.2-11.1); NUCLEATED RBCS 0 /100WBC; PLATELET COUNT* 292 thou/uL (150-400); POLYS 72.3 %; RBC 4.05 mil/uL (4.50-6.00); RDW-CV 13.4 % (10.5-14.5); WBC 9.9 thou/uL (4.0-11.0)
[2019-04-29 00:40] LABS: CALCIUM 8.5 mg/dL (8.5-10.1); CREATININE 1.3 mg/dL (0.6-1.3); POTASSIUM 3.4 mmol/L (3.5-5.1)
[2019-04-29 00:41] LABS: INR 1.1; PROTIME 10.8 Seconds (9.20-11.50)
[2019-04-29 00:45] LABS: ALBUMIN 3.9 g/dL (3.4-5.0); TOTAL BILIRUBIN 0.3 mg/dL (<0.1-1.0); TOTAL PROTEIN 7.2 g/dL (6.4-8.2)
[2019-04-29] MEDS ORDERED: ZOFRAN ODT4 MG PO (02:57)
[2019-04-29 03:11] VITALS: BP 161/62
--- NOTE | 2019-05-03 10:38 | EKG ---
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 : 1945 Requested By: Vonnie Waggoner Order Number: [id number] MD: Karl Pena Measurements Intervals [place] Rate: 62 P: 57 SC: 186 QRS: 13 QRSD: 116 T: 58 QT: 477 QTc: 485 Interpretive Statements Sinus rhythm Borderline low voltage, extremity leads Compared to ECG 11/17/2018 17:00:11 No significant changes noted Electronically Signed On 05-03-2019 10:37:42 [employer] by Karl Pena [email or web address] <ELECTRONICALLY SIGNED> By: Karl Pena MD, [facility] 05/03/19 1037 0018 001 Karl Pena MD, FACC /EPI
== END 2019-04-29 03:09 | disposition home or self-care (01) ==
LOC: M.ERS 23:44
PROVIDERS: Emergency Medicine
DX: R10.13 Epigastric pain (principal); R10.33 Periumbilical pain; E11.9 Type 2 diabetes mellitus without complications; J44.9 Chronic obstructive pulmonary disease, unspecified; E03.9 Hypothyroidism, unspecified; G47.30 Sleep apnea, unspecified; I11.0 Hypertensive heart disease with heart failure; I50.9 Heart failure, unspecified; I25.10 Atherosclerotic heart disease of native coronary artery without angina pectoris; Z88.8 Allergy status to other drugs, medicaments and biological substances; Z79.82 Long term (current) use of aspirin

== ENCOUNTER → 2019-08-16 | Outpatient (CLI) | payer MEDICARE, OTHER ==
[~2019-08-16] MED LIST changes: +ADVAIR 250-501 EACH INH; +SINEMET 25-1001 EAC1 PO; +ZOFRAN ODT4 MG PO
--- NOTE | 2019-08-16 17:14 | CARDNUC ---
[place] [address] CARDIAC NUCLEAR IMAGING REPORT Name: GUILHERME OCASIO Room: [facility]#: [id number] Admission: 08/16/19 Attend Phys: Karl Pena, Discharge: Date of : 41 Date of Service: 08/16/19 1712 Report #: [id number] THIS REPORT FOR: cc: Pawel Ramos MD, David L. MD Liston, Michael J. MD [facility] ~ APPROVED REPORT Study performed: 08/16/2019 14:20:19 Exam: Nuclear Stress Test Indication: Chest pain, Dyspnea, AAA. Patient Location: Out-Patient Stress Tech: Stella De Los Santos Stress Nurse: Joyce Gruber R.N. NM Tech:SAIRA Carmona Ht: 5 ft 10 in Wt: 210 lbs BSA: 2.13 m2 BMI: 30.12 Medical History Medical History: Angina, CAD s/p [place], CAD s/p stent, Cardiomyopathy, CHF, COPD, Diabetes, Fatigue, HTN, Hyperlipidemia, Obesity , SOB, Weakness, Ischemic Cardiomyopathy, Dizziness/Lightheadedness, Parkinson's Disease. Medications: Metoprolol, ASA 81 Mg, Atorvastatin, Lasix, Losartan, Metformin, NTG, K-Cl, Ranexa. Allergies: [id number]. Cardiac Risk Factors: Age, DM, FHX of CAD, HTN, Hyperlipidemia, SOB, Ischemic Cardiomyopathy. Previous Cardiac Procedures: Myocardial infarction, PCI. Pretest Chest Pain Characteristics: No chest pain Exercise History: Sedentary Physical Disabilities: Uses walker to ambulate, Parkinson's Disease. Meds Held (24 hrs): NTG Stress Test Details Stress Test: Pharmacologic stress testing performed using 0.4 mg of regadenoson per 5 mL given IV over 10 seconds. Reason for pharmacologic stress test: Parkinson's Disease, unsteady gait, uses walker to ambulate.. HR Resting HR: 61 bpm Max Heart Rate (APMHR): 145 [place] [address] CARDIAC NUCLEAR IMAGING REPORT Name: AMARJITGUILHERME PERR[place]VILLE Room: [facility] Jordan#: [id number] Admission: 08/16/19 Attend Phys: Karl Pena, Discharge: Date of : 41 Date of Service: 08/16/19 1712 Report #: [id number] Max HR Achieved: 79 bpm Target HR (85% APMHR): 123 bpm % of APMHR: 54 Recovery HR: 69 bpm BP Resting BP: 112/70 mmHg Max BP: 102/56 mmHg ECG Resting ECG: Sinus Rhythm Stress ECG: Sinus Rhythm ST Change: None Arrhythmia: None Recovery ECG: Sinus Rhythm Recovery ST Change: None Recovery Arrhythmia: None Clinical Reason for Termination: Completed protocol Stress Symptoms: Dyspnea. Exercise duration: 00 min 00 sec Exercise capacity: 1.00 METs The patient tolerated Lexiscan infusion without significant cardiac symptoms. Nurse Comments A 73 year old male presented for a sitting Lexiscan r/t chest pain and dyspnea. Test well tolerated. Recovery unremarkable with PO caffeine, effective. Patient was escorted by staff to Nuclear Medicine for imaging. Patient was stable and stated he felt better at that time. Stress ECG Conclusion The baseline 12-lead EKG shows sinus rhythm without significant ST segment or T wave abnormality. EKGs obtained during and post Lexiscan infusion show sinus rhythm with no significant ST segment or T wave changes when compared to baseline. There were no stress-induced arrhythmias. NM EXAM: Myocardial Perfusion REST/STRESS Imaging Protocol: Rest Tc-99m/Stress Tc-99m 1 day Resting Data Rest SPECT myocardial perfusion imaging was performed in supine position 30 minutes following the intravenous injection of 9.8 mCi of Tc-99[place] [address] CARDIAC NUCLEAR IMAGING REPORT Name: AMARJITGUILHERME SAMMY Room: [facility] Ortega#: [id number] Admission: 08/16/19 Attend Phys: Karl Pena, Discharge: Date of : 41 Date of Service: 08/16/19 1712 Report #: [id number] Time of rest injection: 1250 Date: 08/16/2019 The images were gated to evaluate regional wall motion and calculate left ventricular ejection fraction. Administration Route: IV Administration Site: Right AC Pharmacologic Stress Pharmacologic stress test was performed by injecting Regadenoson 0.4 mg IV push followed by the intravenous injection of 33.4 mCi of Tc-99m Sestamibi. Time of stress injection: 1430 Date: 08/16/2019 Administration Route: IV Administration Site: Right AC Gated Stress SPECT was performed 40 minutes after stress injection. The images were gated to evaluate regional wall motion and calculate left ventricular ejection fraction. Prone imaging was performed. Study Quality Study: Good Artifact: Mild Diaphragmatic artifact Study Data At rest, the left ventricular ejection fraction was 52%.. Post stress, the left ventricular ejection was T4%.. TID = 0.99. Perfusion Perfusion images obtained in the supine position show mild photopenia of the inferior wall that resolves with post stress prone imaging suggesting diaphragmatic attenuation artifact. No other significant fixed or reversible defects were identified. Wall Motion Normal left ventricular wall motion. Nuclear Conclusion ECG Findings: negative for ischemia Clinical Findings: negative for ischemia Nuclear Findings: negative for ischemia Exercise Capacity: not assessed Left Ventricular Function: normal Risk Study: low Perfusion images show no defect to suggest infarct or ischemia. Left ventricular systolic function appears normal[place] [address] CARDIAC NUCLEAR IMAGING REPORT Name: AMARJITGUILHERME SAMMY Room: [facility] Ortega#: [id number] Admission: 08/16/19 Attend Phys: Karl Pena, Discharge: Date of : 41 Date of Service: 08/16/19 1712 Report #: [id number] are no wall motion abnormalities. This is a low risk study. <Conclusion> The baseline 12-lead EKG shows sinus rhythm without significant ST segment or T wave abnormality. EKGs obtained during and post Lexiscan infusion show sinus rhythm with no significant ST segment or T wave changes when compared to baseline. There were no stress-induced arrhythmias. <ELECTRONICALLY SIGNED> By: Karl Pena MD, FACC 08/16/191711 11 11 Karl Pena MD, FACC /INF
== END ==
LOC: M.NUC 08-03 15:39
DX: I25.10 Atherosclerotic heart disease of native coronary artery without angina pectoris (principal); I11.0 Hypertensive heart disease with heart failure; I50.9 Heart failure, unspecified; E11.9 Type 2 diabetes mellitus without complications; E78.5 Hyperlipidemia, unspecified; I25.5 Ischemic cardiomyopathy; Z79.899 Other long term (current) drug therapy

== ENCOUNTER → 2020-05-18 | Outpatient (CLI) | payer MEDICARE, OTHER | LOC: M.RAD 14:11 | PROVIDERS: ATTEND Internal Medicine | DX: R06.00 Dyspnea, unspecified (principal) ==

== ENCOUNTER → 2020-06-15 | Outpatient (CLI) | payer MEDICARE, OTHER | LOC: M.RAD 14:10 | PROVIDERS: ATTEND Internal Medicine | DX: R05 Cough (principal) ==

== ENCOUNTER → 2020-08-30 | Outpatient (CLI) | payer MEDICARE, OTHER | LOC: M.LAB 08-29 17:06 | PROVIDERS: ATTEND Anesthesiology | DX: E11.9 Type 2 diabetes mellitus without complications (principal); E87.6 Hypokalemia; I50.9 Heart failure, unspecified ==

== ENCOUNTER 2020-10-18 20:34 | Emergency (ER) | payer MEDICARE, OTHER ==
[~2020-10-18] VITALS: Ht 177.8 cm; Wt 97.5 kg
[2020-10-18] MEDS ORDERED: KEFLEX250 MG PO (21:26)
[2020-10-18 21:52] VITALS: BP 126/60
== END 2020-10-18 21:53 | disposition home or self-care (01) ==
LOC: M.ERS 20:34
DX: S51.011A Laceration without foreign body of right elbow, initial encounter (principal); I10 Essential (primary) hypertension; E11.9 Type 2 diabetes mellitus without complications; Z88.8 Allergy status to other drugs, medicaments and biological substances; Z79.82 Long term (current) use of aspirin; Z79.899 Other long term (current) drug therapy; Z90.49 Acquired absence of other specified parts of digestive tract; W18.30XA Fall on same level, unspecified, initial encounter; Y93.89 Activity, other specified; Y92.89 Other specified places as the place of occurrence of the external cause; Y99.9 Unspecified external cause status

== ENCOUNTER → 2021-01-15 | Outpatient (CLI) | payer MEDICARE, OTHER ==
[~2021-01-15] MED LIST changes: +KEFLEX250 MG PO
== END ==
LOC: M.CT 14:12
PROVIDERS: ATTEND Internal Medicine
DX: S09.90XA Unspecified injury of head, initial encounter (principal); R26.89 Other abnormalities of gait and mobility; R41.89 Other symptoms and signs involving cognitive functions and awareness; W19.XXXA Unspecified fall, initial encounter; Y93.89 Activity, other specified; Y92.89 Other specified places as the place of occurrence of the external cause; Y99.8 Other external cause status

== ENCOUNTER → 2021-03-27 | Outpatient (CLI) | payer MEDICARE, OTHER | LOC: M.LAB 11:07 | PROVIDERS: ATTEND Internal Medicine Gastroenterology | DX: Z01.812 Encounter for preprocedural laboratory examination (principal); Z20.822 Contact with and (suspected) exposure to COVID-19 ==